=== PATIENT | female | born 1965 | race African-American/Black ===

== ENCOUNTER 2016-11-18 16:02 | Emergency (ER) | payer SELFPAY ==
[~2016-11-18 16:02] MED LIST: CLEOCIN PO; HYDROCODON-ACE1 EAC7 PO; LIPITOR; LOPRESSOR; MEDROL DOSEPAK4 MG PO; METFORMIN; PEN-VEE K PO; ULTRAM PO
[2016-11-18 17:24] LABS: URINE SOURCE CLEAN CATCH
[2016-11-18 17:30] LABS: URINE APPEARANCE CLOUDY; URINE BILIRUBIN NEG (NEG); URINE BLOOD TRACE (NEG); URINE COLOR YELLOW; URINE GLUCOSE NEG (NEG); URINE KETONE NEG (NEG); URINE LEUKOCYTE ESTERASE 3+ (NEG); URINE NITRATE NEG (NEG); URINE PROTEIN NEG (NEG); URINE SPECIFIC GRAVITY 1.009 (1.003-1.035); URINE UROBILINOGEN 0.2 MG/DL (NEG)
[2016-11-18 17:33] LABS: CULTURE INDICATED? YES; URINE BACTERIA AUWI NEG (NEGATIVE); URINE SQUAMOUS EPITHELIAL CELL OCC /[HPF]
[2016-11-23 01:18] LABS: CHLAMYDIA TRACH Not Detected (Not Detected); N GONOR Not Detected (Not Detected)
== END 2016-11-18 18:20 | disposition home or self-care (01) ==
LOC: CED 16:02
PROVIDERS: Emergency Medicine
DX: B37.3 Candidiasis of vulva and vagina (principal); A59.01 Trichomonal vulvovaginitis; E11.9 Type 2 diabetes mellitus without complications; I10 Essential (primary) hypertension; F32.9 Major depressive disorder, single episode, unspecified; M06.9 Rheumatoid arthritis, unspecified; F17.200 Nicotine dependence, unspecified, uncomplicated
CPT/HCPCS: 81003; 84703; 87086; 87491; 87591; 87808; 87905; 99283